=== PATIENT | female | born 1970 | race Caucasian/White ===

== ENCOUNTER 2019-09-05 09:25 | Emergency (ER) | payer OTHER, SELFPAY ==
[2019-09-05] MEDS ORDERED: FAMOTIDINE 20 MG/2 ML VIAL IV ONE (09:36)
[2019-09-05] MEDS ORDERED: NA CHLORIDE 0.9% 1,000 ML ONE (09:36)
[2019-09-05] MEDS ORDERED: METHYLPREDNISOLONE 125 MG INJ ONE (09:36)
[2019-09-05] MEDS ORDERED: DIPHENHYDRAMINE 50 MG/ML VIAL ONE (09:36)
--- NOTE | 2019-09-05 10:41 | ER ---
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 Transition of care: patient was not received from another setting of care. Onset: The symptoms/episode began/occurred 1 hour(s) ago. Anaphylaxis evaluation, no signs or symptoms of anaphylaxis were noted. Onset of symptoms was September 05, 2019. Risk Assessment: Do you want to hurt yourself or someone else? Patient reports no desire to harm self or others. Initial Sepsis Screen: Does the patient meet any 2 criteria? No. Patient's initial sepsis screen is negative. Does the patient have a suspected source of infection? No. Patient's initial sepsis screen is negative. Care prior to arrival: None. 09:34 Method Of Arrival: Ambulatory iw 09:34 Acuity: GUANAKO 2 iw Historical: - Allergies: 09:52 Amoxicillin-Pot Clavulanate; rb1 - Home Meds: 09:37 None [Active]; iw - PMHx: 09:37 None; iw - PSHx: 09:37 None; iw - Immunization history:: Adult Immunizations not up to date. - Coronavirus screen:: The patient has NOT traveled to [place] in the past 14 days. Proceed with normal triage process as indicated. - Social history:: Smoking status: Patient reports the use of cigarette tobacco products, smokes one pack cigarettes per day. - Ebola Screening: : Patient negative for fever greater than or equal to 101.5 degrees Fahrenheit, and additional compatible Ebola Virus Disease symptoms Patient denies exposure to infectious person Patient denies travel to an Ebola-affected area in the 21 days before illness onset No symptoms or risks identified at this time. Screenin:30 Abuse screen: Denies threats or abuse. Nutritional screening: No deficits noted. rb1 Tuberculosis screening: No symptoms or risk factors identified. Fall Risk None identified. Assessment: 09:30 General: Appears in no apparent distress. comfortable, Behavior is calm, cooperative. rb1 General: Pt. reports that she felt like she was getting a UTI so she took some of her 's Amoxicllin-Clav 875-125 mg, she took one dose this morning around 7:30 then noticed a red rash over her whole body.. Pain: Denies pain. Neuro: Level of Consciousness is awake, alert, obeys commands, Oriented to person, place, time, situation. Cardiovascular: Patient's skin is warm and dry. Respiratory: Airway is patent Respiratory effort is even, unlabored, Respiratory pattern is regular, symmetrical, Denies cough, shortness of breath. GI: No signs and/or symptoms were reported involving the gastrointestinal system. Derm: Skin is pink, warm \\T\\ dry. 09:58 Reassessment: Patient appears in no apparent distress at this time. Patient denies pain rb1 at this time. Reassessment: Pt. reports that her symptoms are improving. Respiratory: Denies shortness of breath. 10:49 Reassessment: Discharge pending due to IV fluids infusing. rb1 10:53 Reassessment: Patient appears in no apparent distress at this time. Patient and/or rb1 family updated on plan of care and expected duration. Pain level reassessed. Patient is alert, oriented x 3, equal unlabored respirations, skin warm/dry/pink. Patient denies pain at this time. Patient states feeling better. Patient states symptoms have improved. Vital Signs: 09:37 Pulse 115; Resp 18 S; Temp 98.0(TE); Pulse Ox 100% on R/A; Weight 69.85 kg; Height 5 iw ft. 5 in. (165.10 cm); Pain 0/10; 09:45 BP 188 / 118; rb1 10:23 BP 185 / 109; Pulse 89; Resp 19; Pulse Ox 100% on R/A; Pain 0/10; rb1 09:37 Body Mass Index 25.63 (69.85 kg, 165.10 cm) iw 10:23 Pt. stated, "I guess that's what happens to your blood pressure when your scared to rb1 ." ED Course: 09:27 Patient arrived in ED. as 09:28 Janice Cox FNP-C [facility]. kb 09:28 Edis Burnette MD is Attending Physician. kb 09:28 Missed attempt(s): 22 gauge in left antecubital area. Attempted by a certified nursing attendant rb1 and the instructor.. Bleeding controlled, band aid applied, catheter tip intact. 09:30 Patient has correct armband on for positive identification. Bed in low position. Call rb1 light in reach. Side rails up X 1. Pulse ox on. NIBP on. 09:30 Inserted saline lock: 22 gauge in left wrist, using aseptic technique. ,using aseptic rb1 technique. Inserted by Jose L, Instructor. 09:33 Jenn Welch, RN is Primary Nurse. rb1 09:36 Triage completed. iw 09:37 Arm band placed on. iw 11:00 No provider procedures requiring assistance completed. IV discontinued, intact, rb1 bleeding controlled, No redness/swelling at site. Pressure dressing applied. Administered Medications: 09:40 Drug: SOLU-Medrol 125 mg Route: IVP; Site: left wrist; rb1 10:00 Follow up: Response: No adverse reaction; Marked relief of symptoms rb1 09:40 Drug: Pepcid 20 mg Route: IVP; Site: left wrist; rb1 10:00 Follow up: Response: No adverse reaction rb1 09:40 Drug: Benadryl 25 mg Route: IVP; Site: left wrist; rb1 10:00 Follow up: Response: No adverse reaction rb1 09:40 Drug: NS 0.9% 1000 ml Route: IV; Rate: 1000 ml; Site: left wrist; rb1 10:55 Follow up: IV Status: Completed infusion rb1 Outcome: 10:41 Discharge ordered by . kb 11:00 Discharged to home ambulatory, with family. rb1 11:00 Condition: stable 11:00 Discharge instructions given to patient, Instructed on discharge instructions, follow up and referral plans. medication usage, Demonstrated understanding of instructions, follow-up care, medications, Prescriptions given X 2. 11:01 Patient left the ED. rb1 Signatures: Janice Cox, TERESA COWART-Maria Esther Mcbride Irene, OMAYRA RN iw Jenn Welch, RN RN rb1 Corrections: (The following items were deleted from the chart) 09:52 09:37 Allergies: No Known Allergies; iw rb1
--- NOTE | 2019-09-05 10:43 | EDPHYS ---
Physician Documentation [facility] Name: Geri Lindo Age: 48 yrs Sex: Female : 1970 Arrival Date: 09/05/2019 Time: 09:27 Bed 6 Private MD: ED Physician Edis Burnette HPI: 09/05 10:15 This 48 yrs old Female presents to ER via Ambulatory with complaints of kb Allergic Reaction. 10:15 The patient presents with itching, rash. Onset: The symptoms/episode began/occurred kb this morning. Associated signs and symptoms: Pertinent positives: rash. Possible causes: The patient has no known obvious cause for the symptoms. At home the patient or guardian has treated the symptoms with Benadryl. Severity of symptoms: At their worst the symptoms were moderate in the emergency department the symptoms are unchanged. The patient has not experienced similar symptoms in the past. The patient has not recently seen a physician. Pt reports she took tylenol, augmentin and drank some gatorage at 0730. Developed a diffuse rash and itching at 0830. States she has had augmentin in the past with no reaction. Reports she took benadryl at 0900 with no relief. . Historical: - Allergies: 09:52 Amoxicillin-Pot Clavulanate; rb1 - Home Meds: 09:37 None [Active]; iw - PMHx: 09:37 None; iw - PSHx: 09:37 None; iw - Immunization history:: Adult Immunizations not up to date. - Coronavirus screen:: The patient has NOT traveled to [place] in the past 14 days. Proceed with normal triage process as indicated. - Social history:: Smoking status: Patient reports the use of cigarette tobacco products, smokes one pack cigarettes per day. - Ebola Screening: : Patient negative for fever greater than or equal to 101.5 degrees Fahrenheit, and additional compatible Ebola Virus Disease symptoms Patient denies exposure to infectious person Patient denies travel to an Ebola-affected area in the 21 days before illness onset No symptoms or risks identified at this time. ROS: 10:13 Constitutional: Negative for fever, chills, and weight loss, ENT: Negative for injury, kb pain, and discharge, Neck: Negative for injury, pain, and swelling, Cardiovascular: Negative for chest pain, palpitations, and edema, Respiratory: Negative for shortness of breath, cough, wheezing, and pleuritic chest pain, Abdomen/GI: Negative for abdominal pain, nausea, vomiting, diarrhea, and constipation, Back: Negative for injury and pain, MS/Extremity: Negative for injury and deformity, Neuro: Negative for headache, weakness, numbness, tingling, and seizure. 10:13 Skin: Positive for rash, diffusely. Exam: 10:13 Constitutional: This is a well developed, well nourished patient who is awake, alert, kb and in no acute distress. Head/Face: Normocephalic, atraumatic. Neck: Trachea midline, no thyromegaly or masses palpated, and no cervical lymphadenopathy. Supple, full range of motion without nuchal rigidity, or vertebral point tenderness. No Meningismus. Chest/axilla: Normal chest wall appearance and motion. Nontender with no deformity. No lesions are appreciated. Cardiovascular: Regular rate and rhythm with a normal S1 and S2. No gallops, murmurs, or rubs. Normal PMI, no JVD. No pulse deficits. Respiratory: Lungs have equal breath sounds bilaterally, clear to auscultation and percussion. No rales, rhonchi or wheezes noted. No increased work of breathing, no retractions or nasal flaring. Abdomen/GI: Soft, non-tender, with normal bowel sounds. No distension or tympany. No guarding or rebound. No evidence of tenderness throughout. MS/ Extremity: Pulses equal, no cyanosis. Neurovascular intact. Full, normal range of motion. Neuro: Awake and alert, GCS 15, oriented to person, place, time, and situation. Cranial nerves II-XII grossly intact. Motor strength 5/5 in all extremities. Sensory grossly intact. Cerebellar exam normal. Normal gait. 10:13 Skin: rash can be described as erythematous, and is diffusely located. Vital Signs: 09:37 Pulse 115; Resp 18 S; Temp 98.0(TE); Pulse Ox 100% on R/A; Weight 69.85 kg; Height 5 iw ft. 5 in. (165.10 cm); Pain 0/10; 09:45 BP 188 / 118; rb1 10:23 BP 185 / 109; Pulse 89; Resp 19; Pulse Ox 100% on R/A; Pain 0/10; rb1 09:37 Body Mass Index 25.63 (69.85 kg, 165.10 cm) iw 10:23 Pt. stated, "I guess that's what happens to your blood pressure when your scared to rb1 ." MDM: 09:28 Patient medically screened. kb 10:13 Data reviewed: vital signs, nurses notes. Data interpreted: Pulse oximetry: on room air kb is 100 %. Interpretation: normal. Counseling: I had a detailed discussion with the patient and/or guardian regarding: the historical points, exam findings, and any diagnostic results supporting the discharge/admit diagnosis, the need for outpatient follow up, a family practitioner, to return to the emergency department if symptoms worsen or persist or if there are any questions or concerns that arise at home. 10:35 Response to treatment: the patient's symptoms have markedly improved after treatment. kb 09/05 09:33 Order name: IV Start; Complete Time: 09:57 kb Administered Medications: 09:40 Drug: SOLU-Medrol 125 mg Route: IVP; Site: left wrist; rb1 10:00 Follow up: Response: No adverse reaction; Marked relief of symptoms rb1 09:40 Drug: Pepcid 20 mg Route: IVP; Site: left wrist; rb1 10:00 Follow up: Response: No adverse reaction rb1 09:40 Drug: Benadryl 25 mg Route: IVP; Site: left wrist; rb1 10:00 Follow up: Response: No adverse reaction rb1 09:40 Drug: NS 0.9% 1000 ml Route: IV; Rate: 1000 ml; Site: left wrist; rb1 10:55 Follow up: IV Status: Completed infusion rb1 Disposition: 12:25 Co-signature as Attending Physician, Edis Burnette MD I agree with the assessment and kdr plan of care. Disposition: 09/05/19 10:41 Discharged to Home. Impression: Urticaria. - Condition is Stable. - Discharge Instructions: Hives, [id number], Allergies, [id number]. - Prescriptions for Pepcid 20 mg Oral Tablet - take 1 tablet by ORAL route every 12 hours for 5 days; 10 tablet. Prednisone 20 mg Oral Tablet - take 1 tablet by ORAL route once daily for 5 days; 5 tablet. - Medication Reconciliation Form, Thank You Letter, Antibiotic Education, Prescription Opioid Use form. - Follow up: Emergency Department; When: As needed; Reason: Worsening of condition. Follow up: Private Physician; When: 2 - 3 days; Reason: Recheck today's complaints, Continuance of care, Re-evaluation by your physician. Signatures: Janice Cox FNP-C FNP-Edis Finnegan MD MD kdr Williams, Irene, RN RN iw Jenn Welch RN RN rb1 Corrections: (The following items were deleted from the chart) 09:52 09:37 Allergies: No Known Allergies; rb1 11:01 10:41 09/05/2019 10:41 Discharged to Home. Impression: Urticaria. Condition is Stable. rb1 Discharge Instructions: Hives, [id number], Allergies, [id number]. Prescriptions for Pepcid 20 mg Oral Tablet - take 1 tablet by ORAL route every 12 hours for 5 days; 10 tablet, Prednisone 20 mg Oral Tablet - take 1 tablet by ORAL route once daily for 5 days; 5 tablet. and Forms are Medication Reconciliation Form, Thank You Letter, Antibiotic Education, Prescription Opioid Use. Follow up: Emergency Department; When: As needed; Reason: Worsening of condition. Follow up: Private Physician; When: 2 - 3 days; Reason: Recheck today's complaints, Continuance of care, Re-evaluation by your physician. kb
[2019-09-06 07:41] VITALS: TEMP 98; O2SAT 100
[2019-09-06 07:43] VITALS: BP 185/109
== END 2019-09-05 11:01 | disposition home or self-care (01) ==
LOC: ER 09:25
DX: L50.9 Urticaria, unspecified (principal); F17.210 Nicotine dependence, cigarettes, uncomplicated; Z88.8 Allergy status to other drugs, medicaments and biological substances
CPT/HCPCS: 96361; 96374; 96375; 99284; J1200; J2930; J7030

== ENCOUNTER 2021-03-25 16:15 | Observation (INO) | payer SELFPAY ==
--- NOTE | 2021-03-25 17:59 | RAD REPORT ---
EXAM DESCRIPTION: CT - Head Brain Wo Cont - 03/25/2021 5:30 pm CLINICAL HISTORY: DIZZINESS Headache, drowsiness, hypertension COMPARISON: No comparisons TECHNIQUE: All CT scans are performed using dose optimization technique as appropriate and may inclu de automated exposure control or mA/KV adjustment according to patient size. FINDINGS: No intracranial hemorrhage, hydrocephalus or extra-axial fluid collection.Mild brain atrop hy is present.No areas of brain edema or evidence of midline shift. The paranasal sinuses and mastoids are clear. The calvarium is intact. IMPRESSION: No acute intracranial abnormality.
--- NOTE | 2021-03-25 20:28 | RAD REPORT ---
EXAM DESCRIPTION: RAD - Chest Single View - 03/25/2021 8:13 pm CLINICAL HISTORY: protocol Chest pain. COMPARISON: No comparisons FINDINGS: Portable technique limits examination quality. Mild prominence of interstitial markings are seen in the lower lungs. This is nonspecific but can be seen in viral infection or asthma. The heart is mildly enlarged in size. No displaced fractures.
[2021-03-25] MEDS ORDERED: METOPROLOL TARTRATE 5 MG/5 ML INJ IV ONE (20:42)
[2021-03-25] MEDS ORDERED: HYDRALAZINE HCL 20 MG/ML VIAL ONE (21:43)
[2021-03-25] MEDS ORDERED: MORPHINE 4 MG/ML SYR ONE (22:08)
[2021-03-25] MEDS ORDERED: ONDANSETRON 4 MG/2 ML VIAL ONE (22:08)
[2021-03-25 22:35] LABS: Absolute Lymphocytes (CBC) 1.2 K/uL (0.7-4.9); Basophils % 0.7 % (0-1.3); Hematocrit 47.6 % (36.0-45.0); Lymphocytes % 12.3 % (15.3-44.8); MPV 7.7 fL (7.6-11.3); RBC Red Blood Cell Count 4.72 M/uL (3.86-4.86)
[2021-03-25 22:36] LABS: Protime INR 1.09
[2021-03-25 22:51] LABS: Albumin 3.7 g/dL (3.4-5.0); Bilirubin Direct 0.2 mg/dL (0-0.2); Bilirubin Total 0.7 mg/dL (0.2-1.0); Potassium 3.1 mmol/L (3.5-5.1); Protein, Total 7.3 g/dL (6.4-8.2); Troponin (Emerg Dept Use Only) 0.07 ng/mL (0.0-0.045)
--- NOTE | 2021-03-25 22:53 | ER ---
Nurse's Notes [facility] Name: Geri Lindo Age: 50 yrs Sex: Female : 1970 Arrival Date: 03/25/2021 Time: 16:17 Bed 10 Private MD: Diagnosis: Transient ischemic attack. Dizziness. Severe hypertension. Elevated Troponin Presentation: 03/25 17:15 Chief complaint: Patient states: Dizziness, unbalanced, nausea starting this AM. Went kg to [place] and they sent her over here. Coronavirus screen: Vaccine status: Patient reports being unvaccinated. Client denies travel out of the [place] in the last 14 days. At this time, unable to obtain information related to travel outside the [place] Coronavirus screen: At this time, the client does not indicate any symptoms associated with coronavirus-19. Ebola Screen: Patient negative for fever greater than or equal to 101.5 degrees Fahrenheit, and additional compatible Ebola Virus Disease symptoms Patient denies exposure to infectious person. Patient denies travel to an Ebola-affected area in the 21 days before illness onset. Initial Sepsis Screen: Does the patient meet any 2 criteria? No. Patient's initial sepsis screen is negative. Does the patient have a suspected source of infection? No. Patient's initial sepsis screen is negative. Risk Assessment: Do you want to hurt yourself or someone else? Patient reports no desire to harm self or others. Onset of symptoms was March 24, 2021. Onset of symptoms Onset of symptoms was March 25, 2021. 17:15 Method Of Arrival: Wheelchair kg 17:15 Acuity: GUANAKO 3 kg Triage Assessment: 17:18 General: Appears in no apparent distress. Behavior is calm, cooperative, appropriate kg for age, quiet. Pain: Denies pain. 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 - Social history:: Smoking status: Patient reports the use of cigarette tobacco products, smokes one pack cigarettes per day. Patient uses alcohol, occasionally. Screenin:20 Abuse screen: Denies threats or abuse. Denies injuries from another. Nutritional kg screening: No deficits noted. Tuberculosis screening: No symptoms or risk factors identified. Fall Risk None identified. Assessment: 20:15 General: Appears in no apparent distress. Behavior is calm, cooperative. Neuro: Level bb of Consciousness is awake, alert, obeys commands, Oriented to person, place, time, situation. Cardiovascular: Capillary refill < 3 seconds Patient's skin is warm and dry. Respiratory: Respiratory effort is even, unlabored, Respiratory pattern is regular. GI: No signs and/or symptoms were reported involving the gastrointestinal system. Derm: Skin is pink, warm \T\ dry. Musculoskeletal: Circulation, motion, and sensation intact. 23:06 Reassessment: Patient appears in no apparent distress at this time. Patient is alert, ms4 oriented x 3, equal unlabored respirations, skin warm/dry/pink. 23:09 Reassessment: attempted to call report. nurse to call back. ms4 23:20 Reassessment: report given to 2nd floor RN. patient to be transported upstairs. ms4 Vital Signs: 17:15 BP 215 / 130; Pulse 99; Resp 20; Temp 96.4(TE); Pulse Ox 97% on R/A; Weight 61.23 kg kg (R); Height 5 ft. 5 in. (165.10 cm); Pain 0/10; 19:55 BP 207 / 124; tt3 20:23 BP 240 / 151; Pulse 106; Resp 16 S; Pulse Ox 97% on R/A; bb 20:31 BP 213 / 133; Pulse 90; bb 20:39 BP 197 / 130; Pulse 84; Resp 18 S; Pulse Ox 96% on R/A; bb 20:45 BP 194 / 136; Pulse 81; Resp 18 S; Pulse Ox 95% on R/A; bb 21:24 BP 183 / 115; Pulse 84; Resp 18; Pulse Ox 100% ; Pain 0/10; ms4 21:51 BP 185 / 104; Pulse 80; Resp 20; Pulse Ox 98% ; Pain 10/10; ms4 22:39 BP 154 / 94; Pulse 78; Resp 18; Pulse Ox 98% ; Pain 3/10; ms4 23:06 BP 148 / 84; Pulse 72; Resp 18; Pulse Ox 96% ; Pain 0/10; ms4 17:15 Body Mass Index 22.46 (61.23 kg, 165.10 cm) kg ED Course: 16:17 Patient arrived in ED. rg4 17:18 Triage completed. kg 17:18 Arm band placed on right wrist. kg 17:30 CT Head Brain wo Cont In Process Unspecified. EDMS 19:46 EKG done, by ED staff, reviewed by Chavez Sanches MD. tt3 19:59 Chavez Sanches MD is Attending Physician. pkl 20:10 Inserted saline lock: 22 gauge in left antecubital area, using aseptic technique. bb ,using aseptic technique. By Chloe CUTLER Blood collected. 20:13 XRAY Chest (1 view) In Process Unspecified. EDMS 20:15 Patient has correct armband on for positive identification. Bed in low position. Call bb light in reach. Side rails up X 1. Adult w/ patient. monitoring specialist on. Pulse ox on. NIBP on. 22:18 Inserted saline lock: 20 gauge in right antecubital area, using aseptic technique. oe Blood collected. 22:25 CT Head Brain wo Cont In Process Unspecified. EDMS 22:51 Joshua Smith MD is Hospitalizing Provider. pkl Administered Medications: 20:23 Drug: Lopressor (metoprolol) 5 mg {Note: BP 240/151 HR 106.} Route: IVP; Site: left bb antecubital; 20:31 Drug: Lopressor (metoprolol) 5 mg {Note: BP 213/133 HR 90.} Route: IVP; Site: left bb antecubital; 20:39 Drug: Lopressor (metoprolol) 5 mg {Note: BP 197/130 HR 84.} Route: IVP; Site: left bb antecubital; 21:25 Drug: hydrALAZINE 20 mg Route: IVP; Site: left antecubital; ms4 21:45 Drug: morphine 4 mg Route: IVP; Site: left antecubital; ms4 21:45 Drug: Zofran (Ondansetron) 4 mg Route: IVP; Site: left antecubital; ms4 23:01 Drug: K-Dur (potassium chloride) 40 mEq Route: PO; ms4 Outcome: 22:53 Decision to Hospitalize by Provider. pkl 23:43 Patient left the ED. ms4 Signatures: Dispatcher [employer] EDMS Chavez Sanches MD MD pkl Shital Gomes, RN RN Mariel Medrano rg4 Cayetano [facility] tt3 Chloe Wren RN RN kg Estrella Mantilla RN RN ms4
--- NOTE | 2021-03-25 22:53 | EDPHYS ---
Physician Documentation [facility] Name: Geri Lindo Age: 50 yrs Sex: Female : 1970 Arrival Date: 03/25/2021 Time: 16:17 Bed 10 Private MD: ED Physician Chavez Sanches HPI: 03/25 20:11 This 50 yrs old Female presents to ER via Wheelchair with complaints of pkl Dizziness, High Blood Pressure. 20:11 The patient presents with feeling off balance. Onset: The symptoms/episode pkl began/occurred this morning, 14 hour(s) ago. Associated signs and symptoms: Pertinent positives: severe hypertension. 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 - Social history:: Smoking status: Patient reports the use of cigarette tobacco products, smokes one pack cigarettes per day. Patient uses alcohol, occasionally. ROS: 20:11 Eyes: Negative for injury, pain, redness, and discharge, ENT: Negative for injury, pkl pain, and discharge, Neck: Negative for injury, pain, and swelling, Cardiovascular: Negative for chest pain, palpitations, and edema, Respiratory: Negative for shortness of breath, cough, wheezing, and pleuritic chest pain, Abdomen/GI: Negative for abdominal pain, nausea, vomiting, diarrhea, and constipation, Back: Negative for injury and pain, : Negative for injury, bleeding, discharge, and swelling, MS/Extremity: Negative for injury and deformity, Skin: Negative for injury, rash, and discoloration. 20:11 Neuro: Positive for dizziness, gait disturbance. Exam: 20:11 Head/Face: Normocephalic, atraumatic. Eyes: Pupils equal round and reactive to light, pkl extra-ocular motions intact. Lids and lashes normal. Conjunctiva and sclera are non-icteric and not injected. Cornea within normal limits. Periorbital areas with no swelling, redness, or edema. ENT: Nares patent. No nasal discharge, no septal abnormalities noted. Tympanic membranes are normal and external auditory canals are clear. Oropharynx with no redness, swelling, or masses, exudates, or evidence of obstruction, uvula midline. Mucous membranes moist. Neck: Trachea midline, no thyromegaly or masses palpated, and no cervical lymphadenopathy. Supple, full range of motion without nuchal rigidity, or vertebral point tenderness. No Meningismus. Chest/axilla: Normal chest wall appearance and motion. Nontender with no deformity. No lesions are appreciated. Cardiovascular: Regular rate and rhythm with a normal S1 and S2. No gallops, murmurs, or rubs. Normal PMI, no JVD. No pulse deficits. Respiratory: Lungs have equal breath sounds bilaterally, clear to auscultation and percussion. No rales, rhonchi or wheezes noted. No increased work of breathing, no retractions or nasal flaring. Abdomen/GI: Soft, non-tender, with normal bowel sounds. No distension or tympany. No guarding or rebound. No evidence of tenderness throughout. Back: No spinal tenderness. No costovertebral tenderness. Full range of motion. Skin: Warm, dry with normal turgor. Normal color with no rashes, no lesions, and no evidence of cellulitis. MS/ Extremity: Pulses equal, no cyanosis. Neurovascular intact. Full, normal range of motion. 20:11 Neuro: Orientation: is normal, Mentation: is normal, Memory: is normal, Cranial nerves: grossly normal, Cerebellar function: normal finger to nose testing, heel to arriaga testing is normal, Motor: is normal, Sensation: is normal, Gait: is steady. Vital Signs: 17:15 BP 215 / 130; Pulse 99; Resp 20; Temp 96.4(TE); Pulse Ox 97% on R/A; Weight 61.23 kg kg (R); Height 5 ft. 5 in. (165.10 cm); Pain 0/10; 19:55 BP 207 / 124; tt3 20:23 BP 240 / 151; Pulse 106; Resp 16 S; Pulse Ox 97% on R/A; bb 20:31 BP 213 / 133; Pulse 90; bb 20:39 BP 197 / 130; Pulse 84; Resp 18 S; Pulse Ox 96% on R/A; bb 20:45 BP 194 / 136; Pulse 81; Resp 18 S; Pulse Ox 95% on R/A; bb 21:24 BP 183 / 115; Pulse 84; Resp 18; Pulse Ox 100% ; Pain 0/10; ms4 21:51 BP 185 / 104; Pulse 80; Resp 20; Pulse Ox 98% ; Pain 10/10; ms4 22:39 BP 154 / 94; Pulse 78; Resp 18; Pulse Ox 98% ; Pain 3/10; ms4 23:06 BP 148 / 84; Pulse 72; Resp 18; Pulse Ox 96% ; Pain 0/10; ms4 17:15 Body Mass Index 22.46 (61.23 kg, 165.10 cm) kg MDM: 19:59 Patient medically screened. pkl 22:44 Data reviewed: vital signs, nurses notes, lab test result(s), EKG, radiologic studies, pkl CT scan, plain films. ED course: Discussed lab, EKG and CT Scans result with patient. Patient may have TIA ( dizziness and unsteady gait ) when she woke up at 5.30 AM this morning. Unsteady gait has resolved. Patient not a candidate for thrombolytic ( outside window for thrombolytic ) Patient also has severe hypertension.. 03/25 19:37 Order name: Basic Metabolic Panel; Complete Time: 22:53 kg 03/25 19:37 Order name: CBC with Diff; Complete Time: 22:43 kg 03/25 19:37 Order name: LFT's; Complete Time: 22:53 kg 03/25 19:37 Order name: Magnesium; Complete Time: 22:53 kg 03/25 19:37 Order name: NT PRO-BNP; Complete Time: 22:53 kg 02 19:37 Order name: PT-INR; Complete Time: 22:43 kg 02 17:21 Order name: CT Head Brain wo Cont; Complete Time: 20:09 kg 03/25 19:37 Order name: Troponin (emerg Dept Use Only); Complete Time: 22:53 kg 03/25 19:37 Order name: XRAY Chest (1 view); Complete Time: 20:31 kg 03/25 21:46 Order name: CT Head Brain wo Cont pkl 03/25 22:45 Order name: SARS-COV-2 RT PCR; Complete Time: 22:53 EDMS 03/25 19:37 Order name: EKG; Complete Time: 19:38 kg 03/25 19:37 Order name: Cardiac monitoring; Complete Time: 20:50 kg 03/25 19:37 Order name: EKG - Nurse/Tech; Complete Time: 19:37 kg 03/25 19:37 Order name: IV Saline Lock; Complete Time: 20:50 kg 03/25 19:37 Order name: Labs collected and sent; Complete Time: 20:50 kg 03/25 19:37 Order name: O2 Per Protocol; Complete Time: 20:50 kg 03/25 19:37 Order name: O2 Sat Monitoring; Complete Time: 20:50 kg Administered Medications: 20:23 Drug: Lopressor (metoprolol) 5 mg {Note: BP 240/151 HR 106.} Route: IVP; Site: left bb antecubital; 20:31 Drug: Lopressor (metoprolol) 5 mg {Note: BP 213/133 HR 90.} Route: IVP; Site: left bb antecubital; 20:39 Drug: Lopressor (metoprolol) 5 mg {Note: BP 197/130 HR 84.} Route: IVP; Site: left bb antecubital; 21:25 Drug: hydrALAZINE 20 mg Route: IVP; Site: left antecubital; ms4 21:45 Drug: morphine 4 mg Route: IVP; Site: left antecubital; ms4 21:45 Drug: Zofran (Ondansetron) 4 mg Route: IVP; Site: left antecubital; ms4 23:01 Drug: K-Dur (potassium chloride) 40 mEq Route: PO; ms4 Disposition Summary: 03/25/21 22:53 Hospitalization Ordered Hospitalization Status: Observation pkl Provider: Joshua Smith pkl Location: Telemetry/MedSurg (observation) pkl Condition: Stable pkl Problem: new pkl Symptoms: have improved pkl Bed/Room Type: Standard pkl Room Assignment: [facility](03/25/21 23:04) Diagnosis - Transient ischemic attack. Dizziness. Severe hypertension. Elevated Troponin pkl Forms: - Medication Reconciliation Form pkl - SBAR form pkl Signatures: Dispatcher [employer] EDChavez Finn MD MD pkl Shital Gomes RN RN bb Garcia, Cindy, RN RN cg Graham, Kristen, RN RN kg Estrella Mantilla RN RN ms4 Corrections: (The following items were deleted from the chart) 21:47 20:21 CORONAVIRUS+MR.LAB.BRZ ordered. EDMS EDMS 22:58 22:53 Transient ischemic attack. Dizziness. Severe hypertension pkl pkl 23:00 22:59 Transient ischemic attack. Dizziness. Severe hypertension. Elevated Troponin pkl pkl 23:04 22:53 pkl cg
[2021-03-25] MEDS ORDERED: POTASSIUM CL SA 10 MEQ TAB PO ONE (23:20)
[2021-03-25] MEDS ORDERED: ONDANSETRON 4 MG/2 ML VIAL IV PRN (23:58)
[2021-03-25 23:59] VITALS: BMI 22.3
--- NOTE | 2021-03-26 01:00 | P.HP ---
Certification for Inpatient Patient admitted to: Inpatient With expected LOS: >2 Midnights Patient will require the following post-hospital care: None Practitioner: I am a practitioner with admitting privileges, knowledge of patient current condition, hospital course, and medical plan of care. Services: Services provided to patient in accordance with Admission requirements found in Title 42 Section 412.3 of the Code of Federal Regulations Patient History Date of Service: 03/25/21 Primary Care Provider: None Reason for admission: Hypertensive emergency History of Present Illness: 50-year-old female with no known past medical history not on any home medications presents emergency department for hypertension, headache, difficulty walking. Patient reports that she went to bed on 03/24/2021 at approximately 2230 and did not feel quite right but was able to walk without difficulty, awoke on 03/25/2021 around 7 AM and noticed that she was having difficulty walking. At some point throughout the day patient presented to stand-alone emergency department for evaluation was found to be severely hypertensive with blood pressure around 240-250 systolic it was recommended that patient present to emergency department for further evaluation and management. Patient was evaluated here in the emergency department, was hypertensive with initial blood pressure of 215/130, patient with severe headache and some difficulty ambulating. Labs were significant for potassium 3.1 GFR 50 glucose 112 alk phos 128 troponin 0 0.07 BNP 22,276 chest x-ray with mild prominence of interstitial markings seen in the lower lungs, heart mildly enlarged and size. CT head negative for acute findings x2. Blood pressure came down after hydralazine, Lopressor IV and is currently in the 150s systolic. Patient neurological symptoms have resolved at this point time, ED provider wishes to admit for further evaluation and management of hypertensive emergency. Allergies No Known Allergies Allergy (Unverified 12/14/11 21:57) - Past Medical/Surgical History -: None -: None Psychosocial/ Personal History: Patient lives at home with her family - Family History Father -: Hypertension, Liver disease - Social History Smoking Status: Current every day smoker Counseled patient to stop smoking for: less than 10 minutes Smoking therapy provided: No Alcohol use: Yes CD- Drugs: No Caffeine use: Yes Place of Residence: Home Review of Systems General: Weakness, Malaise Neurological: Incoordination, Other (Headache), As per HPI (Difficulty with gait) Physical Examination - Vital Signs Temperature: 96.4 F Blood Pressure: 148/84 Pulse: 72 Respirations: 18 - Physical Exam General: Alert, In no apparent distress, Oriented x3 HEENT: Atraumatic, PERRLA, Mucous membr. moist/pink, EOMI, Sclerae nonicteric Neck: Supple, 2+ carotid pulse no bruit, No LAD, Without JVD or thyroid abnormal ity Respiratory: Clear to auscultation bilaterally, Normal air movement Cardiovascular: Regular rate/rhythm, Normal S1 S2 Gastrointestinal: Normal bowel sounds, No tenderness Musculoskeletal: No tenderness Integumentary: No rashes Neurological: Normal gait, Normal speech, Normal strength at 5/5 x4 extr, Normal tone, Sensation intact, Normal affect Lymphatics: No axilla or inguinal lymphadenopathy - Studies Laboratory Data (last 24 hrs) 03/25/21 22:10: PT 12.6 H, INR 1.09 03/25/21 22:10: WBC 10.00, Hgb 16.1 H, Hct 47.6 H, Plt Count 309 03/25/21 22:10: Sodium 141, Potassium 3.1 L, BUN 13, Creatinine 1.15, Glucose 112 H, Magnesium 2.0, Total Bilirubin 0.7, AST 16, ALT 40, Alkaline Phosphatase 128 H Assessment and Plan - Plan Assessment: Hypertensive emergency suspect underlying undiagnosed primary hypertension Plan: Hypertensive emergency suspect underlying undiagnosed primary hypertension: Patient initially presented with some neurological findings including ataxia, severe headache. Symptoms have since resolved but will still obtain MRI stroke protocol, carotid ultrasound, echocardiogram BNP significantly elevated, troponin mildly elevated will trend troponins, monitor on telemetry as well. Have initiated antihypertensive agents lisinopril and metoprolol with hold parameters. We will also consult cardiology for additional assistance. DVT PPX: Lovenox Code status: Full Discharge Plan: Home Plan to discharge in: 48 Hours - Advance Directives Does patient have a Living Will: No Does patient have a Durable POA for Healthcare: No - Code Status/Comfort Care Code Status Assessed: Yes (Full code) Critical Care: No Time Spent Managing Pts Care (In Minutes): 55
[2021-03-26 01:06] VITALS: O2SAT 93
[2021-03-26] MEDS ORDERED: HYDROCODONE/APAP 5/325 MG TAB PO PRN (04:06)
--- NOTE | 2021-03-26 06:08 | P.PN ---
Subjective Date of Service: 03/26/21 Primary Care Provider: None Chief Complaint: Hypertensive emergency Subjective: Improving, Doing well Physical Examination - Vital Signs Temperature: 97.8 F Blood Pressure: 151/85 Pulse: 83 Respirations: 20 Pulse Ox (%): 92 - Studies Laboratory Data (last 24 hrs) 03/25/21 22:10: PT 12.6 H, INR 1.09 03/25/21 22:10: WBC 10.00, Hgb 16.1 H, Hct 47.6 H, Plt Count 309 03/25/21 22:10: Sodium 141, Potassium 3.1 L, BUN 13, Creatinine 1.15, Glucose 112 H, Magnesium 2.0, Total Bilirubin 0.7, AST 16, ALT 40, Alkaline Phosphatase 128 H Assessment & Plan Discharge Plan: Home Plan to discharge in: 24 Hours Physician Review Additional Text: COVID: negative CT head: COMPARISON: No comparisons TECHNIQUE: All CT scans are performed using dose optimization technique as appropriate and may include automated exposure control or mA/KV adjustment according to patient size. FINDINGS: No intracranial hemorrhage, hydrocephalus or extra-axial fluid collection.Mild brain atrophy is present.No areas of brain edema or evidence of midline shift. The paranasal sinuses and mastoids are clear. The calvarium is intact. IMPRESSION: No acute intracranial abnormality. CXR: COMPARISON: No comparisons FINDINGS: Portable technique limits examination quality. Mild prominence of interstitial markings are seen in the lower lungs. This is nonspecific but can be seen in viral infection or asthma. The heart is mildly enlarged in size. No displaced fractures. Cartotid doppler: Pending Echocardiogram: Normal ejection fraction. Patient with LVH Physical exam: General: Alert, In no apparent distress, Oriented x3 HEENT: Atraumatic, PERRLA, Mucous membr. moist/pink, EOMI, Sclerae nonicteric Neck: Supple, 2+ carotid pulse no bruit, No LAD, Without JVD or thyroid abnormality Respiratory: Clear to auscultation bilaterally, Normal air movement Cardiovascular: Regular rate/rhythm, Normal S1 S2 Gastrointestinal: Normal bowel sounds, No tenderness Musculoskeletal: No tenderness Integumentary: No rashes Neurological: Normal gait, Normal speech, Normal strength at 5/5 x4 extr, Normal tone, Sensation intact, Normal affect Lymphatics: No axilla or inguinal lymphadenopathy Impression: Hypertensive emergency suspect underlying undiagnosed primary hypertension Alcohol and tobacco abuse Plan: Hypertensive emergency suspect underlying undiagnosed primary hypertension: Patient refused MRI. Patient doing well at this time. Blood pressure control. Case discussed with cardiology. Will plan for discharge today. We will continue with aspirin 81 mg daily, lisinopril 20 mg daily, metoprolol 50 mg 1 pill twice daily at discharge. Patient will have renal Doppler and cardiac stress test with cardiology. Lifestyle modification education will need to be changed. DVT PPX: Lovenox Code status: Full Discharge Plan: Home Time Spent Managing Pts Care (In Minutes): 55
[2021-03-26 07:42] LABS: Basophils % 0.7 % (0-1.3); Lymphocytes % 12.9 % (15.3-44.8); MPV 7.3 fL (7.6-11.3); RBC Red Blood Cell Count 3.96 M/uL (3.86-4.86)
--- NOTE | 2021-03-26 07:43 | EKG ---
Test Date: 2021-03-25 Test Time: 19:41:45 Bobtail Driver: TLT MEASUREMENT RESULTS: Intervals: Rate: 101 MI: 150 QRSD: 88 QT: 394 QTc: 510 Lyndon: P: 71 MI: 150 QRS: 79 T: 42 INTERPRETIVE STATEMENTS: Sinus tachycardia Biatrial enlargement Left ventricular hypertrophy with repolarization abnormality Abnormal ECG No previous ECG available for comparison Electronically Signed On 03-26-21 07:41:50 CDT by Jaspreet Sanford
[2021-03-26 08:00] LABS: Albumin 2.8 g/dL (3.4-5.0); Bilirubin Total 0.5 mg/dL (0.2-1.0); Potassium 3.6 mmol/L (3.5-5.1); Protein, Total 5.6 g/dL (6.4-8.2); Thyroid Stimulating Hormone 1.31 uIU/mL (0.360-3.740); Troponin I 0.11 ng/mL (0.0-0.045)
--- NOTE | 2021-03-26 08:29 | RAD REPORT ---
EXAM DESCRIPTION: US - CP - 03/26/2021 12:40 am CLINICAL HISTORY: Neuro symptoms, ataxia Headache, drowsiness COMPARISON: [id number] dated 12/31/2014 TECHNIQUE: Real-time sonographic evaluation of both carotid systems was performed. Doppler interroga tion was performed with waveform tracing bilaterally. FINDINGS: Normal high resistance waveforms are noted in both external carotid arteries. The common c arotid arteries and internal carotid arteries show normal low resistance waveforms. Mild soft plaque is noted right carotid bulb and proximal right internal carotid artery. Peak systoli c and end diastolic velocity values and the ICA/CCA ratios are in the non-hemodynamically significant range. Antegrade flow seen in both vertebral arteries. IMPRESSION: Mild soft plaque right carotid bulb and proximal right internal carotid artery. No evidence of a hemodynamically significant stenosis.
[2021-03-26] MEDS ORDERED: ASPIRIN EC 81 MG TAB PO SCH (09:00)
[2021-03-26] MEDS ORDERED: lisinopriL 20 MG TAB PO SCH (09:00)
[2021-03-26] MEDS ORDERED: FOLIC ACID 1 MG TABLET PO SCH (09:00)
[2021-03-26] MEDS ORDERED: METOPROLOL TAR 50 MG TAB PO SCH (09:00)
[2021-03-26] MEDS ORDERED: ENOXAPARIN 40 MG/0.4 ML SQ SCH (09:00)
--- NOTE | 2021-03-26 10:12 | RAD REPORT ---
EXAM DESCRIPTION: CT of the head without contrast CLINICAL HISTORY: Sudden severe headache COMPARISON: None available TECHNIQUE: Axial CT of the head obtained from the skull apex to the skull base without contrast. Thi s exam was performed according to our departmental dose-optimization program, which includes automate d exposure control, adjustment of the mA and/or kV according to patient size and/or use of iterative reconstruction technique. FINDINGS: No acute intracranial hemorrhage identified. No mass, mass effect, shift of the midline, a bnormal extra-axial fluid collection or CT evidence of acute ischemic change identified. The ventricu lar system is unremarkable. No acute abnormalities of the supratentorial white matter, basal gangli a, cerebellum, or brainstem. The visualized paranasal sinuses and the mastoid air cells are relatively well aerated. No skull fr acture identified. Visualized orbits and globes are unremarkable. IMPRESSION: 1. No acute intracranial abnormality identified. Electronically signed by: Barry Escobar 03/25/2021 10:44 PM CDT Due to temporary technical issues with the PACS/Fluency reporting system, reports are being signed by the in house radiologist without review as a courtesy to ensure prompt reporting. The interpreting r adiologist is fully responsible for the content of the report.
--- NOTE | 2021-03-26 11:11 | ECHO ---
HEIGHT: 5 ft 5 in WEIGHT: 134 lb 0 oz DATE OF STUDY: 03/26/[address]: Chavo Avery NP 2-DIMENSIONAL: YES M.MODE: YES DOPPLER: YES COLOR FLOW: YES TDS: NO PORTABLE: NO DEFINITY: NO BUBBLE STUDY: NO DIAGNOSIS: HYPERTENSION CARDIAC HISTORY: CATHERIZATION: NO SURGERY: NO PROSTHETIC VALVE: NO PACEMAKER: NO MEASUREMENTS (cm) DIASTOLIC (NORMALS) SYSTOLIC (NORMALS) IVSd 1.4 (0.6-1.2) LA Diam 4.3 (1.9-4.0) LVEF 51-55% LVIDd 4.6 (3.5-5.7) LVIDs 3.5 (2.0-3.5) %FS 22% LVPWd 1.4 (0.6-1.2) Ao Diam 2.7 (2.0-3.7) 2 DIMENSIONAL ASSESSMENT: RIGHT ATRIUM: NORMAL LEFT ATRIUM: DILATED RIGHT VENTRICLE: NORMAL LEFT VENTRICLE: LEFT VENTRICULAR HYPERTROPHY TRICUSPID VALVE: NORMAL MITRAL VALVE: NORMAL PULMONIC VALVE: NORMAL AORTIC VALVE: NORMAL PERICARDIAL EFFUSION: NONE AORTIC ROOT: NORMAL LEFT VENTRICULAR WALL MOTION: NORMAL EJECTION FRACTION, GRADE I DIASTOLIC DYSFUNCTION. DOPPLER/COLOR FLOW: MILD MITRAL REGURGITATION. COMMENTS: NORMAL EJECTION FRACTION - LEFT VENTRICULAR HYPERTROPHY. GRADE I DIASTOLIC DYSFUNCTION. LEFT ATRIAL ENLARGEMENT. MILD MITRAL REGURGITATION. TECHNOLOGIST: CLEO ESQUIVEL
--- NOTE | 2021-03-26 11:20 | P.DS ---
Admission Date: 03/25/21 Discharge Date: 03/26/21 Primary Care Provider: None Disposition: ROUTINE DISCHARGE Discharge Condition: GOOD Reason for Admission: Hypertensive emergency Consultations: Cardiology-Dr. Sanford Procedures: COVID: negative CT head: COMPARISON: No comparisons TECHNIQUE: All CT scans are performed using dose optimization technique as appropriate and may include automated exposure control or mA/KV adjustment according to patient size. FINDINGS: No intracranial hemorrhage, hydrocephalus or extra-axial fluid collection.Mild brain atrophy is present.No areas of brain edema or evidence of midline shift. The paranasal sinuses and mastoids are clear. The calvarium is intact. IMPRESSION: No acute intracranial abnormality. CXR: COMPARISON: No comparisons FINDINGS: Portable technique limits examination quality. Mild prominence of interstitial markings are seen in the lower lungs. This is nonspecific but can be seen in viral infection or asthma. The heart is mildly enlarged in size. No displaced fractures. Cartotid doppler: COMPARISON: [id number] dated 12/31/2014 TECHNIQUE: Real-time sonographic evaluation of both carotid systems was performed. Doppler interrogation was performed with waveform tracing bilaterally. FINDINGS: Normal high resistance waveforms are noted in both external carotid arteries. The common carotid arteries and internal carotid arteries show normal low resistance waveforms. Mild soft plaque is noted right carotid bulb and proximal right internal carotid artery. Peak systolic and end diastolic velocity values and the ICA/CCA ratios are in the non-hemodynamically significant range. Antegrade flow seen in both vertebral arteries. IMPRESSION: Mild soft plaque right carotid bulb and proximal right internal carotid artery. No evidence of a hemodynamically significant stenosis. Echocardiogram: MEASUREMENTS (cm) DIASTOLIC (NORMALS) SYSTOLIC (NORMALS) IVSd 1.4 (0.6-1.2) LA Diam 4.3 (1.9-4.0) LVEF 51-55% LVIDd 4.6 (3.5-5.7) LVIDs 3.5 (2.0-3.5) %FS 22% LVPWd 1.4 (0.6-1.2) Ao Diam 2.7 (2.0-3.7) 2 DIMENSIONAL ASSESSMENT: RIGHT ATRIUM: NORMAL LEFT ATRIUM: DILATED RIGHT VENTRICLE: NORMAL LEFT VENTRICLE: LEFT VENTRICULAR HYPERTROPHY TRICUSPID VALVE: NORMAL MITRAL VALVE: NORMAL PULMONIC VALVE: NORMAL AORTIC VALVE: NORMAL PERICARDIAL EFFUSION: NONE AORTIC ROOT: NORMAL LEFT VENTRICULAR WALL MOTION: NORMAL EJECTION FRACTION, GRADE I DIASTOLIC DYSFUNCTION. DOPPLER/COLOR FLOW: MILD MITRAL REGURGITATION. COMMENTS: NORMAL EJECTION FRACTION LEFT VENTRICULAR HYPERTROPHY. GRADE I DIASTOLIC DYSFUNCTION. LEFT ATRIAL ENLARGEMENT. MILD MITRAL REGURGITATION. Medical problem list: Hypertensive emergency with underlying hypertension, new diagnosis Grade 1 diastolic dysfunction Alcohol and tobacco abuse Brief History of Present Illness: 50-year-old female with no known past medical history not on any home medications presents emergency department for hypertension, headache, and difficulty walking. Patient reports that she went to bed on 03/24/2021 at approximately 2230 and did not feel quite right but was able to walk without difficulty, awoke on 03/25/2021 around 7 AM and noticed that she was having difficulty walking. At some point throughout the day patient presented to stand-alone emergency department for evaluation was found to be severely hypertensive with blood pressure around 240-250 systolic it was recommended that patient present to emergency department for further evaluation and management. Patient was evaluated here in the emergency department, was hypertensive with initial blood pressure of 215/130, patient with severe headache and some difficulty ambulating. Labs were significant for potassium 3.1 GFR 50 glucose 112 alk phos 128 troponin 0 0.07 BNP 22,276 chest x-ray with mild prominence of interstitial markings seen in the lower lungs, heart mildly enlarged and size. CT head negative for acute findings x2. Blood pressure came down after hydralazine, Lopressor IV and is currently in the 150s systolic. Patient neurological symptoms have resolved at this point time. Patient was admitted for further evaluation and treatment. Hospital Course: Patient presented with hypertensive emergency. Patient with severe headache, difficulty walking. Patient found to have hypertension. Patient was treated in emergency room. Symptoms have resolved. Patient was started on medication. Blood pressure improved. Patient with history of tobacco and alcohol abuse. C essation education provided. Patient seen and evaluated by cardiology. Echocardiogram shows grade 1 diastolic dysfunction with normal ejection fraction. Carotid Doppler shows mild plaque. No further intervention was required. At discharge patient will continue with aspirin 81 mg daily, lisinopril 20 mg daily, metoprolol 50 mg 1 pill twice daily, folic acid 1 mg daily, and thiamine 100 mg daily. Patient will need to follow-up with cardiology next week at 830 on Monday to follow-up this hospitalization. Patient will have outpatient cardiac stress test and kidney Doppler to further evaluate. Compliance with her medications were addressed in detail. At discharge recommend to maintain blood pressure less than 130/80. If blood pressures remain above 140/90 further adjustment may be required. This can be done with the help of cardiology or her PCP. Patient plans to establish care with a PCP in the area. Education on hypertension, diastolic CHF, tobacco and alcohol cessation provided. Patient with alcohol and tobacco abuse. Tobacco and alcohol cessation addressed in detail. This will be important especially in light of her hypertension. This can be further managed by her PCP Vital Signs/Physical Exam: Temp Pulse Resp BP Pulse Ox 97.8 F 83 20 151/85 H 92 03/26/21 11:16 03/26/21 11:16 03/26/21 11:16 03/26/21 11:16 03/26/21 11:16 General: Alert, In no apparent distress, Oriented x3, Cooperative HEENT: Atraumatic Neck: Supple Respiratory: Clear to auscultation bilaterally, Normal air movement Cardiovascular: Normal pulses, Regular rate/rhythm Gastrointestinal: Normal bowel sounds, Soft and benign, Non-distended, No tenderness, No masses, No rebound, No guarding Musculoskeletal: No erythema, No tenderness, No warmth Integumentary: No tenderness/swelling, No erythema, No warmth, No cyanosis Neurological: Normal speech, Normal strength at 5/5 x4 extr, Normal tone, Normal affect Laboratory Data at Discharge: WBC 7.50 K/uL (4.3-10.9) D 03/26/21 07:15 Hgb 13.5 g/dL (12.0-15.0) D 03/26/21 07:15 Hct 40.0 % (36.0-45.0) D 03/26/21 07:15 Plt Count 239 K/uL (152-406) D 03/26/21 07:15 PT 12.6 SECONDS (9.5-12.5) H 03/25/21 22:10 INR 1.09 03/25/21 22:10 Sodium 139 mmol/L (136-145) 03/26/21 07:15 Potassium 3.6 mmol/L (3.5-5.1) 03/26/21 07:15 BUN 13 mg/dL (7-18) 03/26/21 07:15 Creatinine 1.03 mg/dL (0.55-1.3) 03/26/21 07:15 Glucose 95 mg/dL (74-106) 03/26/21 07:15 Magnesium 2.0 mg/dL (1.8-2.4) 03/25/21 22:10 Total Bilirubin 0.5 mg/dL (0.2-1.0) 03/26/21 07:15 AST 10 U/L (15-37) L 03/26/21 07:15 ALT 29 U/L (12-78) 03/26/21 07:15 Alkaline Phosphatase 89 U/L (45-117) 03/26/21 07:15 Troponin I 0.11 ng/mL (0.0-0.045) H 03/26/21 07:15 Triglycerides 113 mg/dL (<150) 03/26/21 07:15 Cholesterol 157 mg/dL (<200) 03/26/21 07:15 HDL Cholesterol 33 mg/dL (40-60) L 03/26/21 07:15 Cholesterol/HDL Ratio 4.76 03/26/21 07:15 Home Medications: Aspirin [Aspirin EC 81 MG] 81 mg PO DAILY #90 tablet. 03/26/21 Folic Acid 1 mg PO DAILY #90 tablet 03/26/21 Metoprolol Tartrate [Lopressor*] 50 mg PO BID #60 tab 03/26/21 Thiamine HCl 100 mg PO DAILY #90 tablet 03/26/21 lisinopriL [Prinivil*] 20 mg PO DAILY #30 tab 03/26/21 New Medications: Aspirin [Aspirin EC 81 MG] 81 mg PO DAILY #90 tablet. Folic Acid 1 mg PO DAILY #90 tablet Metoprolol Tartrate [Lopressor*] 50 mg PO BID #60 tab lisinopriL [Prinivil*] 20 mg PO DAILY #30 tab Thiamine HCl 100 mg PO DAILY #90 tablet Physician Discharge Instructions: Patient presented with hypertensive emergency. Patient with severe headache, difficulty walking. Patient found to have hypertension. Patient was treated in emergency room. Symptoms have resolved. Patient was started on medication. Blood pressure improved. Patient with history of tobacco and alcohol abuse. Cessation education provided. Patient seen and evaluated by cardiology. Echocardiogram shows grade 1 diastolic dysfunction with normal ejection fraction. Carotid Doppler shows mild plaque. No further intervention was required. At discharge patient will continue with aspirin 81 mg daily, lisinopril 20 mg daily, metoprolol 50 mg 1 pill twice daily, folic acid 1 mg daily, and thiamine 100 mg daily. Patient will need to follow-up with cardiology next week at 830 on Monday to follow-up this hospitalization. Patient will have outpatient cardiac stress test and kidney Doppler to further evaluate. Compliance with her medications were addressed in detail. At discharge recommend to maintain blood pressure less than 130/80. If blood pressures remain above 140/90 further adjustment may be required. This can be done with the help of cardiology or her PCP. Patient plans to establish care with a PCP in the area. Education on hypertension, diastolic CHF, tobacco and alcohol cessation provided. Patient with alcohol and tobacco abuse. Tobacco and alcohol cessation addressed in detail. This will be important especially in light of her hypertension. This can be further managed by her PCP Diet: AHA Activity: Ad maria elena Followup: NONE,NONE [Primary Care Provider] - Time spent managing pt's care (in minutes): 55
[2021-03-26 12:33] VITALS: BP 133/78; TEMP 98.6
[2021-03-26] MEDS ORDERED: ATORVASTATIN 40 MG TAB PO SCH (21:00)
--- NOTE | 2021-03-27 17:22 | CON ---
Reason For Consultation: Hypertensive crisis. History Of Present Illness: Ms. Lindo is a 50-year-old white woman without any previous past medical history known to her. She came in with altered mental status, atypical chest pain, shortness of willy th, had a systolic blood pressure of 240/140 in the emergency room. Treated with clonidine, hydralaz ine, Norvasc, eventually ended up on metoprolol and lisinopril, and her blood pressure improved. By the time I saw her, she was asymptomatic. Denied any nausea, vomiting, diaphoresis, PND, orthopnea, pedal edema, palpitations, or syncope. Past Medical History: Negative. Allergies: NONE. Review of Systems: Negative. Social History: Positive for tobacco use. No drug use. No alcohol use that is excessive. Denied a [place] allergy pill, diet pill, or energy drinks intake. Family History: Noncontributory. Medications: At home were none. Allergies: NONE. Physical Examination: Vital Signs: Stable. When I saw her, blood pressure was 150/90, sinus rhythm. HEENT: Negative. Neck: Supple with no bruit. Chest: Clear. Cardiac: Revealed a regular rhythm and rate with S4 gallops. Abdomen: Benign. Extremities: Revealed no clubbing, cyanosis, or edema. Diagnostic Data: Her chest x-ray was negative. EKG showed left ventricular hypertrophy and left atr ial dilatation. Echocardiogram which was done today showed left ventricular hypertrophy with grade 1 diastolic dysfunction. Impression And Plan: Hypertensive crisis. The patient according to the echocardiogram and EKG seeme d to have some left ventricular hypertrophy, left atrial enlargement, diastolic dysfunction which tel ls that her blood pressure has been elevated for quite some time and not being treated. I think she needs to be at least on metoprolol and lisinopril. We will add Norvasc and hydralazine as needed. S he may even require a low-dose diuretic. I think she should have a stress test and MPI as an outpati ent to rule out coronary artery disease as well. From my standpoint, she can go home and I will have her come see me in the office in the very near future. I think a renal Doppler down the road is als o indicated. JACKY/APRIL Voice ID: [id number] Report ID: [id number]
== END 2021-03-26 12:30 | disposition home or self-care (01) ==
LOC: ER 16:15 → 2ND 23:26 → INTOOBSV 23:26
PROVIDERS: ADMIT Family Medicine; ATTEND Family Medicine
DX: I16.1 Hypertensive emergency (principal); I11.0 Hypertensive heart disease with heart failure; I50.30 Unspecified diastolic (congestive) heart failure; F10.10 Alcohol abuse, uncomplicated; F17.210 Nicotine dependence, cigarettes, uncomplicated; Z71.6 Tobacco abuse counseling; I65.21 Occlusion and stenosis of right carotid artery; Z20.822 Contact with and (suspected) exposure to COVID-19; Z88.0 Allergy status to penicillin; Z82.49 Family history of ischemic heart disease and other diseases of the circulatory system
CPT/HCPCS: 36415; 70450; 71045; 80048; 80053; 80061; 80076; 83735; 83880; 84439; 84443; 84484; 85025; 85610; 93005; 93306; 93880; 96374; 96375; 97161; 99285; J0360; J1650; J2405; U0003